=== PATIENT | female | born 1985 | race Hispanic/Latino ===

== ENCOUNTER 2017-11-27 01:14 | Emergency (ER) | payer BC ==
[2017-11-27 01:28] VITALS: BP 143/88; RESP 20; TEMP 97.9
[2017-11-27 02:00] LABS: SQUAMOUS EPITHIAL 7 /hpf (0-5); URINE BACTERIA RARE (<OCC); URINE BILIRUBIN NEGATIVE (NEGATIVE); URINE BLOOD 1+ (NEGATIVE); URINE CLARITY Hazy (Clear); URINE COLOR Yellow (YELLOW); URINE GLUCOSE (UA) NORMAL (Normal); URINE LEUKOCYTE ESTERASE 2+ Leu/uL (Negative); URINE PROTEIN NEGATIVE (NEGATIVE); URINE UROBILINOGEN NORMAL mg/dL (0.2-1.0)
--- NOTE | 2017-11-27 02:39 | C.PDOC ---
History Of Present Illness 32 year old female presents to the ED c/o urinary frequency, urgency and suprapubic pressure for the past 2 days. Patient has PMHx of UTI in the past and this feel the same. Patient denies fever, chills, nausea, vomit, diarrhea, back pain. Time Seen by Provider: 11/27/17 01:33 Chief Complaint (Nursing): Female Genitourinary History Per: Patient History/Exam Limitations: no limitations Onset/Duration Of Symptoms: Days (2) Current Symptoms Are (Timing): Still Present Quality Of Discomfort: "Pain" Associated Symptoms: Urinary Symptoms. denies: Nausea, Vomiting, Diarrhea Alleviating Factors: None Recent travel outside of the [place]: No Additional History Per: Patient Abnormal Vaginal Bleeding: No Last Menstral Period: 1 week ago Past Medical History Reviewed: Historical Data, Nursing Documentation, Vital Signs Vital Signs: Last Vital Signs Temp 97.9 F 11/27/17 01:22 Pulse 74 11/27/17 01:22 Resp 20 11/27/17 01:22 BP 143/88 11/27/17 01:22 Pulse Ox 98 11/27/17 02:54 - Medical History PMH: No Chronic Diseases Surgical History: No Surg Hx Family History: States: Unknown Family Hx - Social History Hx Alcohol Use: No Hx Substance Use: No Review Of Systems Constitutional: Negative for: Fever, Chills Gastrointestinal: Negative for: Nausea, Vomiting, Abdominal Pain Genitourinary: Positive for: Frequency, Incontinence. Negative for: Dysuria, Hematuria Physical Exam - Physical Exam Appears: Non-toxic, No Acute Distress Skin: Normal Color, Warm, Dry Head: Atraumatic, Normacephalic Eye(s): bilateral: Normal Inspection Oral Mucosa: Moist Neck: Normal ROM, Supple Gastrointestinal/Abdominal: Soft, No Tenderness, No Distention, No Guarding, No Rebound Back: No CVA Tenderness Extremity: Normal ROM, No Tenderness, No Swelling Neurological/Psych: Oriented x3, Normal Speech Gait: Steady ED Course And Treatment O2 Sat by Pulse Oximetry: 98 (ON RA) Pulse Ox Interpretation: Normal Progress Note: Plan: - Urine culture. - UA. Macrobid PO initiated in ED and RX given for 1 week. Advised PMD f/u Disposition Counseled Patient/Family Regarding: Diagnosis, Need For Followup, Rx Given - Disposition Referrals: [facility] at [facility] [Outside] Disposition: HOME/ ROUTINE Disposition Time: 02:49 Condition: STABLE Additional Instructions: Please follow up with PMD Increase PO fluids Tylenol or advil for pain Return to ER if worse Prescriptions: Nitrofurantoin Macrocrystals [Macrobid] 1 cap PO BID #14 cap Instructions: Urinary Tract Infection, Adult (DC) Forms: [employer] (Nigerien) - Clinical Impression Clinical Impression: UTI (urinary tract infection) - 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 - Scribe Statement The provider has reviewed the documentation as recorded by the Scribe Dustin Escobar All medical record entries made by the Scribe were at my direction and personally dictated by me. I have reviewed the chart and agree that the record accurately reflects my personal performance of the history, physical exam, medical decision making, and the department course for this patient. I have also personally directed, reviewed, and agree with the discharge instructions and disposition.
[2017-11-27 03:02] VITALS: PULSE 80; O2SAT 100
== END 2017-11-27 03:01 | disposition home or self-care (01) ==
LOC: C.ER 01:14
DX: N39.0 Urinary tract infection, site not specified (principal)

== ENCOUNTER 2018-05-11 21:46 | Emergency (ER) | payer BC ==
[2018-05-11 22:16] VITALS: TEMP 98.8; O2SAT 99
--- NOTE | 2018-05-11 22:57 | C.PDOC ---
History Of Present Illness 33 year old female presents to the ED c/o itchy rash to her abdomen, arms, thighs and buttock area. Patient reports she went to her PMD last week and was prescribed Hydrocortisone cream with no relief. Patient denies fever, chills, SOB, lip swelling, tongue swelling, wheezing, nausea, vomit, diarrhea. Time Seen by Provider: 05/11/18 22:30 Chief Complaint (Nursing): Female Genitourinary History Per: Patient History/Exam Limitations: no limitations Onset/Duration Of Symptoms: Days Current Symptoms Are (Timing): Still Present Reports Recently: Treated By A Physician (PMD last week) Recent travel outside of the [place]: No Additional History Per: Patient Past Medical History Reviewed: Historical Data, Nursing Documentation, Vital Signs Vital Signs: Last Vital Signs Temp 98.8 F 05/11/18 22:13 Pulse 76 05/11/18 22:13 Resp 20 05/11/18 22:13 BP 111/75 05/11/18 22:13 Pulse Ox 99 05/11/18 22:13 - Medical History PMH: No Chronic Diseases Surgical History: No Surg Hx Family History: States: Unknown Family Hx - Social History Hx Alcohol Use: No Hx Substance Use: No - Immunization History Hx Tetanus Toxoid Vaccination: No Hx Influenza Vaccination: No Hx Pneumococcal Vaccination: No Review Of Systems Constitutional: Negative for: Fever, Chills ENT: Negative for: Mouth Swelling, Throat Swelling Respiratory: Negative for: Shortness of Breath, Wheezing Gastrointestinal: Negative for: Nausea, Vomiting, Abdominal Pain, Diarrhea Skin: Positive for: Rash Neurological: Negative for: Weakness, Numbness, Headache, Dizziness Physical Exam - Physical Exam Appears: Non-toxic, No Acute Distress Skin: Warm, Dry, Rash (scattered macular, papular, erythematous rash on waist line, bilateral thighs, antecubital area. No rash seen in buttocks) Head: Atraumatic, Normacephalic Eye(s): bilateral: Normal Inspection Oral Mucosa: Moist Tongue: No Swelling Lips: No Swelling Neck: Normal ROM, Supple Chest: Symmetrical Cardiovascular: Rhythm Regular Respiratory: Normal Breath Sounds, No Rales, No Rhonchi, No Wheezing Gastrointestinal/Abdominal: Soft, No Tenderness, No Guarding, No Rebound Extremity: Normal ROM, No Tenderness, No Swelling Neurological/Psych: Oriented x3, Normal Speech, Normal Cognition Gait: Steady ED Course And Treatment O2 Sat by Pulse Oximetry: 99 (ON RA) Pulse Ox Interpretation: Normal Progress Note: Patient was advised to taken antihistamines for her rash and continue using topical cream for herl with itchiness. Patient was advised to follow up with PMD. Disposition Counseled Patient/Family Regarding: Diagnosis, Need For Followup, Rx Given - Disposition Referrals: 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 - Scribe Statement The provider has reviewed the documentation as recorded by the Scribe Dustin Escobar All medical record entries made by the Scribe were at my direction and personally dictated by me. I have reviewed the chart and agree that the record accurately reflects my personal performance of the history, physical exam, medical decision making, and the department course for this patient. I have also personally directed, reviewed, and agree with the discharge instructions and disposition.
[2018-05-11 23:39] VITALS: BP 110/64; PULSE 70; RESP 16
== END 2018-05-11 23:39 | disposition home or self-care (01) ==
LOC: C.ER 21:46
DX: L30.9 Dermatitis, unspecified (principal)